=== PATIENT | male | born 1950 | race Two or more races ===

== ENCOUNTER → 2024-08-02 | Emergency (ER) | payer OTHER ==
[~2024-08-02] VITALS: Ht 175.3 cm; Wt 63.5 kg
[~2024-08-02] MED LIST: 0.9 % SODIUM CHLORIDE 1,000 ML IV SCH; DOPamine HCL IN DEXTROSE 5 % 250 ML IV SCH; POTASSIUM CHLORIDE/D5-0.9%NACL 1,000 ML IV ONE
[2024-08-02 13:01] LABS: HEMATOCRIT 40.1 % (39.0-48.0); HEMOGLOBIN 13.5 g/dL (13-16.00); MEAN CELL VOLUME 92.4 fL (80.0-100.00); MEAN CORPUSCULAR HEMOGLOBIN 31.1 pg (27.00-32.0); MEAN CORPUSCULAR HGB CONC 33.7 g/dl (32.0-36.0); PLATELET COUNT 141 K/uL (150-450); RED BLOOD COUNT 4.34 M/uL (4.00-6.00); RED CELL DISTRIBUTION WIDTH 13.4 % (11.5-14.5)
[2024-08-02 13:26] LABS: CALCIUM 7.7 mg/dL (8.5-10.1); CREATININE SERUM 1.24 mg/dL (0.70-1.30); GFR 56.68
[2024-08-02 13:28] LABS: POTASSIUM 2.97 mEq/L (3.5-5.1)
[2024-08-02 15:56] LABS: URINE APPEARANCE Clear; URINE BILIRRUBIN Negative (NEGATIVE); URINE BLOOD Negative; URINE COLOR Yellow; URINE GLUCOSE Negative (NEGATIVE); URINE KETONE Negative (NEGATIVE); URINE LEUKOCYTE Negative; URINE NITRATE Negative; URINE PROTEIN Negative (NEGATIVE); URINE UROBILINOGEN 0.2 E.U./dl
[2024-08-02 15:59] LABS: URINE BACTERIA 23.9 uL (0.0-1933); URINE CAST 1.52 uL (0.0-1.40); URINE EPITHELIAL CELLS 5.7 uL (0.0-38.8); URINE RBC 2.4 uL (0.0-20.8); URINE WBC 8.8 uL (0.0-23.2)
== END | disposition designated cancer center or children's hospital (05) ==
LOC: ER → EDBD 12:51
PROVIDERS: Emergency Medicine
DX: I44.2 Atrioventricular block, complete (principal); I95.9 Hypotension, unspecified; R53.1 Weakness; I10 Essential (primary) hypertension
CPT/HCPCS: 36415; 71045; 93005; 93041; 96365; 99285; J3490; J7030

== ENCOUNTER 2024-10-04 13:37 | Inpatient (IN) | payer OTHER ==
[~2024-10-04] VITALS: Ht 172.7 cm; Wt 72.6 kg
[2024-10-04] MEDS ORDERED: AMLODIPINE BESYL5 MG PO (14:04)
[2024-10-04] MEDS ORDERED: FARXIGA10 MG PO (14:04)
[2024-10-04] MEDS ORDERED: ENTRESTO 24 MG1 EACH PO (14:04)
[2024-10-04] MEDS ORDERED: FAMOTIDINE20 MG PO (14:04)
[2024-10-04] MEDS ORDERED: WARFARIN SODIUM3 MG (14:04)
--- NOTE | 2024-10-04 14:04 | NUR ---
PTE LLEGA EN AMBULANCIA POR DIARREAS Y PRECION BAJA DESDE HACE VARIOD VILLASEÑOR. SE ACOMODA EN TIMMY COM BARANDAS ELEVADA.
[2024-10-04] MEDS ORDERED: 0.9 % SODIUM CHLORIDE 1,000 ML IV SCH ×2 (14:15→23:00)
[2024-10-04 15:38] LABS: HEMATOCRIT 42.8 % (39.0-48.0); HEMOGLOBIN 14.5 g/dL (13-16.00); MEAN CELL VOLUME 93.7 fL (80.0-100.00); MEAN CORPUSCULAR HEMOGLOBIN 31.6 pg (27.00-32.0); MEAN CORPUSCULAR HGB CONC 33.7 g/dl (32.0-36.0); PLATELET COUNT 182 K/uL (150-450); RED BLOOD COUNT 4.57 M/uL (4.00-6.00); RED CELL DISTRIBUTION WIDTH 15.1 % (11.5-14.5)
--- NOTE | 2024-10-04 16:06 | NUR ---
PTE MASCULINO EVALUADO POR . SE ORIENTA SOBRE ORDENES DE [place] REFIERE COMPRENDER. SE COLECTAN MUESTRAS DE LABORATORIOS, BAJO MEDIDAS ASEPTICAS. SE OBSERVA CANALIZACION DE AMBULANCIA PATENTE, HEENA DE EDEMA Y ERITEMA. SE ADMINISTRAN MEDICAMENTOS, BAJO MEDIDAS ASEPTICAS.
[2024-10-04 16:19] LABS: CALCIUM 9.6 mg/dL (8.5-10.1); CREATININE SERUM 1.42 mg/dL (0.70-1.30); GFR 48.47; POTASSIUM 3.35 mEq/L (3.5-5.1)
[2024-10-04] MEDS ORDERED: CEFTRIAXONE SODIUM 2,000 MG in 0.9 % SODIUM CHLORIDE 100 ML IV SCH (23:01)
[2024-10-04] MEDS ORDERED: LACTOBACILLUS ACIDOPHILUS 1 CAP CAP PO SCH (23:03)
[2024-10-04] MEDS ORDERED: ACETAMINOPHEN 500 MG GEL..CAP PO PRN (23:15)
[2024-10-04] MEDS ORDERED: POTASSIUM CHLORIDE 20MEQ/100ML H2O PB IV ONE (23:15)
[2024-10-05] MEDS ORDERED: METRONIDAZOLE/SODIUM CHLORIDE 100 ML IV SCH (01:00)
[2024-10-05 02:36] LABS: INR 1.46; PARTIAL THROMBOPLASTIN TIME 33.9 SECONDS (22.0-34.0)
[2024-10-05 02:39] LABS: MAGNESIUM 2.6 mg/dL (1.8-2.4)
[2024-10-05 02:53] LABS: C-REACTIVE PROTEIN 5.88 MG/DL (0.00-0.29)
[2024-10-05 02:53] LABS: PROTHROMBIN TIME 15.5 SECONDS (9.0-11.5)
[2024-10-05 05:20] VITALS: BP 95/61
[2024-10-05 06:17] VITALS: BP 97/58; O2SAT 97
[2024-10-05] MEDS ORDERED: PANTOPRAZOLE SODIUM 40 MG/VIAL VIAL IV SCH (09:00)
[2024-10-05] MEDS ORDERED: MEMANTINE HCL 10 MG TABLET PO SCH (09:00)
[2024-10-05] MEDS ORDERED: PATIENTS OWN MEDICATION (MEDICAMENTO EN PISO) PO SCH (09:00)
[2024-10-05 09:51] LABS: FECAL LEUKOCYTES NEGATIVE (NEGATIVE)
[2024-10-05 11:06] LABS: HEMATOCRIT 40.7 % (39.0-48.0); HEMOGLOBIN 13.7 g/dL (13-16.00); MEAN CELL VOLUME 94.2 fL (80.0-100.00); MEAN CORPUSCULAR HEMOGLOBIN 31.8 pg (27.00-32.0); MEAN CORPUSCULAR HGB CONC 33.7 g/dl (32.0-36.0); PLATELET COUNT 174 K/uL (150-450); RED BLOOD COUNT 4.32 M/uL (4.00-6.00); RED CELL DISTRIBUTION WIDTH 15.8 % (11.5-14.5)
[2024-10-05 11:10] VITALS: BP 92/54; O2SAT 97
[2024-10-05 11:57] LABS: ALBUMIN 3.5 gm/dL (3.4-5.0); BILIRUBIN TOTAL 0.41 mg/dL (0.3-1.2); CREATININE SERUM 1.79 mg/dL (0.70-1.30); GFR 37.11; GLOBULINA 3.2 G/DL (2.4-3.5); POTASSIUM 3.87 mEq/L (3.5-5.1); TOTAL PROTEIN 6.7 gm/dL (6.4-8.2)
[2024-10-05 16:00] VITALS: BP 105/58; O2SAT 98
[2024-10-05] MEDS ORDERED: WARFARIN SODIUM 3 MG TABLET PO SCH (21:00)
[2024-10-05] MEDS ORDERED: WARFARIN SODIUM 5 MG TABLET PO SCH (21:00)
[2024-10-06 00:30] VITALS: BP 118/64; O2SAT 97
[2024-10-06 09:02] VITALS: BP 128/65; O2SAT 98
[2024-10-06 11:31] LABS: INR 2.22
[2024-10-06 11:43] LABS: PROTHROMBIN TIME 22.8 SECONDS (9.0-11.5)
[2024-10-06 15:40] VITALS: BP 95/64; O2SAT 97
[2024-10-07 01:10] VITALS: BP 118/63; O2SAT 96
[2024-10-07 07:49] LABS: INR 2.54
[2024-10-07 08:06] LABS: PROTHROMBIN TIME 25.8 SECONDS (9.0-11.5)
[2024-10-07 08:43] VITALS: BP 144/76; O2SAT 983
[2024-10-07 16:33] VITALS: BP 115/66; O2SAT 97
[2024-10-07] MEDS ORDERED: WARFARIN SODIUM 3 MG TABLET PO SCH (21:00)
[2024-10-08 00:14] VITALS: BP 135/81; O2SAT 97
[2024-10-08 06:20] LABS: HEMATOCRIT 42.8 % (39.0-48.0); HEMOGLOBIN 14.4 g/dL (13-16.00); MEAN CELL VOLUME 93.2 fL (80.0-100.00); MEAN CORPUSCULAR HEMOGLOBIN 31.3 pg (27.00-32.0); MEAN CORPUSCULAR HGB CONC 33.6 g/dl (32.0-36.0); PLATELET COUNT 206 K/uL (150-450); RED CELL DISTRIBUTION WIDTH 15.3 % (11.5-14.5)
[2024-10-08 06:51] LABS: ALBUMIN 3.5 gm/dL (3.4-5.0); CALCIUM 8.8 mg/dL (8.5-10.1); CREATININE SERUM 0.92 mg/dL (0.70-1.30); GFR 79.99; PHOSPHOROUS 2.5 mg/dL (2.5-4.9); POTASSIUM 3.7 mEq/L (3.5-5.1)
[2024-10-08] MEDS ORDERED: DEXTROSE 5 %-0.45 % SOD CHLORD 1,000 ML IV SCH (07:00)
[2024-10-08 08:00] VITALS: BP 132/80; O2SAT 97
[2024-10-08 16:00] VITALS: BP 122/61; O2SAT 98
[2024-10-09 00:20] VITALS: BP 127/69; O2SAT 98
[2024-10-09 07:41] LABS: ALBUMIN 2.9 gm/dL (3.4-5.0); CALCIUM 8.6 mg/dL (8.5-10.1); CREATININE SERUM 0.96 mg/dL (0.70-1.30); GFR 76.15; POTASSIUM 3.66 mEq/L (3.5-5.1)
[2024-10-09 07:59] LABS: PHOSPHOROUS 1.6 mg/dL (2.5-4.9)
[2024-10-09 08:25] VITALS: BP 127/74; O2SAT 96
[2024-10-09 16:00] VITALS: BP 105/62; O2SAT 99
== END 2024-10-09 21:51 | disposition home or self-care (01) | DRG 392 ==
LOC: ER 13:37 → SURG 23:03 → SEC-K 23:03 → SURG 10-05 01:06
PROVIDERS: Emergency Medicine; General Practice; Internal Medicine; Internal Medicine Nephrology; ADMIT Internal Medicine; ATTEND Internal Medicine
PROC: BW21ZZZ Computerized Tomography (CT Scan) of Abdomen and Pelvis (ICD-10-PCS; principal; 2024-10-04)
DX: R19.7 Diarrhea, unspecified (principal); N17.9 Acute kidney failure, unspecified; E87.6 Hypokalemia; G30.9 Alzheimer's disease, unspecified; F02.80 Dementia in other diseases classified elsewhere, unspecified severity, without behavioral disturbance, psychotic disturbance, mood disturbance, and anxiety; I10 Essential (primary) hypertension; I50.9 Heart failure, unspecified